=== PATIENT | female | born 1990 | race Caucasian/White ===

== ENCOUNTER 2020-10-23 16:30 | Emergency (ER) | payer OTHER ==
[2020-10-23 17:59] LABS: ALT 15 U/L (4-34); AST 22 U/L (14-36); African American GFR (CKD) >90 (>60 ml/min/1.73 sqM); Alkaline Phosphatase 66 U/L (38-126); Anion Gap 10 mmol/L; Blood Urea Nitrogen 7 mg/dL (7-17); Calcium 10.1 mg/dL (8.4-10.2); Carbon Dioxide 30 mmol/L (22-30); Chloride 100 mmol/L (98-107); Glucose 104 mg/dL (74-99); Non-African American GFR(CKD) >90 (>60 ml/min/1.73 sqM); Potassium 3.4 mmol/L (3.5-5.1); Sodium 140 mmol/L (137-145); Total Bilirubin 0.4 mg/dL (0.2-1.3); Total Protein 7.7 g/dL (6.3-8.2)
[2020-10-23 18:05] LABS: Basophils % (A) 0 %; Eosinophils # (A) 0.1 k/uL (0-0.7); Eosinophils % (A) 1 %; HGB 15.1 gm/dL (11.4-16.0); Lymphocytes # (A) 1.6 k/uL (1.0-4.8); Lymphocytes % (A) 20 %; MCH 29.2 pg (25.0-35.0); MCHC 32.8 g/dL (31.0-37.0); MCV 88.9 fL (80.0-100.0); Mean Platelet Volume 8.9; Monocytes # (A) 0.3 k/uL (0-1.0); Monocytes % (A) 4 %; Neutrophils # (A) 5.7 k/uL (1.3-7.7); Neutrophils % (A) 74 %; Platelet Count 234 k/uL (150-450); RBC 5.18 m/uL (3.80-5.40); RDW 13.3 % (11.5-15.5); WBC 7.7 k/uL (3.8-10.6)
[2020-10-23 18:21] LABS: Cocaine Screen,Urine Not Detected (NotDetected); Phencyclidine Screen,Urine Not Detected (NotDetected); Urn Cannabinoid Scrn Detected (NotDetected)
[2020-10-23 18:22] LABS: Amphetamine Screen,Urine Not Detected (NotDetected); Barbiturate Screen,Urine Not Detected (NotDetected); Benzodiazepines Screen,Urine Not Detected (NotDetected); Methadone Screen, Urine Not Detected (NotDetected); Opiate Screen,Urine Not Detected (NotDetected); Oxycodone Screen, Urine Not Detected (NotDetected); Tricyclic Antidepressant,Urine Not Detected (NotDetected)
[2020-10-23 18:25] LABS: Appearance,Urine Clear (Clear); Bilirubin,Urine Negative (Negative); Blood,Urine Negative (Negative); Color,Urine Yellow; Glucose,Urine (UA) Negative (Negative); Ketones,Urine Negative (Negative); Leukocyte Esterase,Urine Negative (Negative); Nitrite,Urine Negative (Negative); Protein,Urine Trace (Negative); Specific Gravity,Urine 1.026 (1.001-1.035)
--- NOTE | 2020-10-23 18:48 | ED ---
Female Urogenital HPI - General Chief complaint: Urogenital Stated complaint: STD check Time Seen by Provider: 10/23/20 16:48 Source: patient Mode of arrival: ambulatory Limitations: no limitations - History of Present Illness Initial comments: Patient is a 30-year-old female presenting to the emergency department requesting an STD check. Patient states she recently had a new partner and is concerned that he may have gave her something. She is complaining of some mild vaginal irritation, an increase in discharge and "a different odor than normal." She is also complaining of generalized fatigue and states that she just moved to the area and is really hoping for some blood work as well. She states she has possible irritable bowel syndrome and has lost a lot of weight recently. She denies any abdominal pain, nausea or vomiting or diarrhea today. She does not believe she is as she has not had sexual intercourse since June, she is on her menstrual cycle today. She denies any fevers or chills, no chest pain or shortness of breath. She has no further complaints. - Related Data Allergies Allergy/AdvReac Type Severity Reaction Status Date / Time No Known Allergies Allergy Verified 10/23/20 16:46 Review of Systems ROS Statement: Those systems with pertinent positive or pertinent negative responses have been documented in the HPI. ROS Other: All systems not noted in ROS Statement are negative. Past Medical History Additional Past Medical History / Comment(s): Herpes, HPV. History of Any Multi-Drug Resistant Organisms: MRSA Date of last positivie culture/infection: 2006 MDRO Source:: right axilla Past Surgical History: Appendectomy, Section Past Psychological History: Anxiety, Depression, PTSD Smoking Status: Former smoker Past Alcohol Use History: Occasional Past Drug Use History: Cocaine, Marijuana General Exam - General Exam Comments Initial Comments: GENERAL: Patient is well-developed and well-nourished. Patient is nontoxic and in no ac patrick distress. HEAD: Atraumatic, normocephalic. EYES: Pupils equal round and reactive to light, extraocular movements intact, sclera anicteric, conjunctiva are normal. Eyelids were unremarkable. ENT: TMs normal, nares patent, oropharynx clear without exudates. Moist mucous me mbranes. NECK: Normal range of motion, supple without lymphadenopathy or JVD. LUNGS: Unlabored respirations. Breath sounds clear to auscultation bilaterally and equal. No wheezes rales or rhonchi. HEART: Regular rate and rhythm without murmurs, rubs or gallops. ABDOMEN: Soft, nontender, normoactive bowel sounds. No guarding, no rebound. No masses appreciated. MUSCULOSKELETAL: Normal extremities with adequate strength and normal range of motion, no pitting or edema. No clubbing or cyanosis. NEUROLOGICAL: Patient is alert and oriented x 3. Motor and sensory are also intact. Cranial nerves II through XII grossly intact. Symmetrical smile. Normal speech, normal gait. PSYCH: Normal mood, normal affect. SKIN: Warm, Dry, normal turgor, no rashes or lesions noted. Limitations: no limitations External exam: Present: normal external exam Speculum exam: Present: vaginal bleeding (Mild vaginal bleeding however patient is on her menstrual cycle.). Absent: vaginal discharge, cervical discharge, for eign body By manual exam: Present: normal by manual exam Medical Decision Making - Medical Decision Making Patient is a 30-year-old female here requesting STD check as well as basic lab work. Her vitals are stable. Her exam is unremarkable. Patient's labs show no abnormalities, he urine is normal, hCG is not detected. She did request a urine drug screen which is only positive for marijuana. Trichomonas is negative today. Genital culture, gonorrhea and committed ER all pending at this time. I discussed these findings with the patient. She is stable for discharge. I recommended following up with her family doctor as well as ASSIGNER. She is in agreement with this plan of care. - Lab Data Result diagrams: 10/23/20 17:38 10/23/20 17:38 Lab Results 10/23/20 10/23/20 10/23/20 Range/Units 17:38 17:38 17:38 WBC 7.7 (3.8-10.6) k/uL RBC 5.18 (3.80-5.40) m/uL Hgb 15.1 (11.4-16.0) gm/dL Hct 46.0 (34.0-46.0) % MCV 88.9 (80.0-100.0) fL MCH 29.2 (25.0-35.0) pg MCHC 32.8 (31.0-37.0) g/dL RDW 13.3 (11.5-15.5) % Plt Count 234 (150-450) k/uL MPV 8.9 Neutrophils % 74 % Lymphocytes % 20 % Monocytes % 4 % Eosinophils % 1 % Basophils % 0 % Neutrophils # 5.7 (1.3-7.7) k/uL Lymphocytes # 1.6 (1.0-4.8) k/uL Monocytes # 0.3 (0-1.0) k/uL Eosinophils # 0.1 (0-0.7) k/uL Basophils # 0.0 (0-0.2) k/uL Sodium (137-145) mmol/L Potassium (3.5-5.1) mmol/L Chloride (98-107) mmol/L Carbon Dioxide (22-30) mmol/L Anion Gap mmol/L BUN (7-17) mg/dL Creatinine (0.52-1.04) mg/dL Est GFR (CKD-EPI)AfAm (>60 ml/min/1.73 sqM) Est GFR (CKD-EPI)NonAf (>60 ml/min/1.73 sqM) Glucose (74-99) mg/dL Calcium (8.4-10.2) mg/dL Total Bilirubin (0.2-1.3) mg/dL AST (14-36) U/L ALT (4-34) U/L Alkaline Phosphatase (38-126) U/L Total Protein (6.3-8.2) g/dL Albumin (3.5-5.0) g/dL Urine Color Yellow Urine Appearance Clear (Clear) Urine pH 8.0 (5.0-8.0) Ur Specific [employer] 1.026 (1.001-1.035) Urine Protein Trace H (Negative) Urine Glucose (UA) Negative (Negative) Urine Ketones Negative (Negative) Urine Blood Negative (Negative) Urine Nitrite Negative (Negative) Urine Bilirubin Negative (Negative) Urine Urobilinogen 2.0 (<2.0) mg/dL Ur Leukocyte Esterase Negative (Negative) Urine HCG, Qual Not Detected (Not Detectd) Urine Opiates Screen Not Detected (NotDetected) Ur Oxycodone Screen Not Detected (NotDetected) Urine Methadone Screen Not Detected (NotDetected) Ur Propoxyphene Screen Not Detected (NotDetected) Ur Barbiturates Screen Not Detected (NotDetected) U Tricyclic Antidepress Not Detected (NotDetected) Ur Phencyclidine Scrn Not Detected (NotDetected) Ur Amphetamines Screen Not Detected (NotDetected) U Methamphetamines Scrn Not Detected (NotDetected) U Benzodiazepines Scrn Not Detected (NotDetected) Urine Cocaine Screen Not Detected (NotDetected) U Marijuana (THC) Screen Detected H (NotDetected) Trichomonas Ag (Rapid) (Negative) 10/23/20 10/23/20 Range/Units 17:38 17:38 WBC (3.8-10.6) k/uL RBC (3.80-5.40) m/uL Hgb (11.4-16.0) gm/dL Hct (34.0-46.0) % MCV (80.0-100.0) fL MCH (25.0-35.0) pg MCHC (31.0-37.0) g/dL RDW (11.5-15.5) % Plt Count (150-450) k/uL MPV Neutrophils % % Lymphocytes % % Monocytes % % Eosinophils % % Basophils % % Neutrophils # (1.3-7.7) k/uL Lymphocytes # (1.0-4.8) k/uL Monocytes # (0-1.0) k/uL Eosinophils # (0-0.7) k/uL Basophils # (0-0.2) k/uL Sodium 140 (137-145) mmol/L Potassium 3.4 L (3.5-5.1) mmol/L Chloride 100 (98-107) mmol/L Carbon Dioxide 30 (22-30) mmol/L Anion Gap 10 mmol/L BUN 7 (7-17) mg/dL Creatinine 0.62 (0.52-1.04) mg/dL Est GFR (CKD-EPI)AfAm >90 (>60 ml/min/1.73 sqM) Est GFR (CKD-EPI)NonAf >90 (>60 ml/min/1.73 sqM) Glucose 104 H (74-99) mg/dL Calcium 10.1 (8.4-10.2) mg/dL Total Bilirubin 0.4 (0.2-1.3) mg/dL AST 22 (14-36) U/L ALT 15 (4-34) U/L Alkaline Phosphatase 66 (38-126) U/L Total Protein 7.7 (6.3-8.2) g/dL Albumin 5.0 (3.5-5.0) g/dL Urine Color Urine Appearance (Clear) Urine pH (5.0-8.0) Ur Specific [employer] (1.001-1.035) Urine Protein (Negative) Urine Glucose (UA) (Negative) Urine Ketones (Negative) Urine Blood (Negative) Urine Nitrite (Negative) Urine Bilirubin (Negative) Urine Urobilinogen (<2.0) mg/dL Ur Leukocyte Esterase (Negative) Urine HCG, Qual (Not Detectd) Urine Opiates Screen (NotDetected) Ur Oxycodone Screen (NotDetected) Urine Methadone Screen (NotDetected) Ur Propoxyphene Screen (NotDetected) Ur Barbiturates Screen (NotDetected) U Tricyclic Antidepress (NotDetected) Ur Phencyclidine Scrn (NotDetected) Ur Amphetamines Screen (NotDetected) U Methamphetamines Scrn (NotDetected) U Benzodiazepines Scrn (NotDetected) Urine Cocaine Screen (NotDetected) U Marijuana (THC) Screen (NotDetected) Trichomonas Ag (Rapid) Negative (Negative) Disposition Clinical Impression: Vaginal irritation Disposition: HOME SELF-CARE Condition: Stable Instructions (If sedation given, give patient instructions): Normal Exam (ED) Additional Instructions: Please return to the Emergency Department if symptoms worsen or any other concerns. Genital culture, gonorrhea, chlamydia are pending at this time. Rest of labs today are normal. Follow-up with family doctor as well as ASSIGNER as discussed. Is patient prescribed a controlled substance at d/c from ED?: No Referrals: None,Stated [Primary Care Provider] - 1-2 days Time of Disposition: 18:48
[2020-10-24 15:44] LABS: C. trachomatis,PCR Negative (Neg,Equiv); Chlamydia trachomatis Source Cervix; N. gonorrhoeae,PCR Negative (Neg,Equiv); Neisseria Source Cervix
== END 2020-10-23 19:01 | disposition home or self-care (01) ==
LOC: EC 16:30
DX: N89.8 Other specified noninflammatory disorders of vagina (principal); Z87.891 Personal history of nicotine dependence
CPT/HCPCS: 36415; 80053; 80306; 81003; 81025; 85025; 87070; 87491; 87591; 87808; 99283

== ENCOUNTER 2020-10-24 19:44 | Emergency (ER) | payer OTHER ==
[2020-10-24 20:44] LABS: Appearance,Urine Clear (Clear); Bilirubin,Urine Negative (Negative); Blood,Urine Negative (Negative); Color,Urine Yellow; Glucose,Urine (UA) Negative (Negative); Ketones,Urine 1+ (Negative); Leukocyte Esterase,Urine Negative (Negative); Nitrite,Urine Negative (Negative); PH, Urine 6.5 (5.0-8.0); Protein,Urine Negative (Negative); Specific Gravity,Urine 1.013 (1.001-1.035); Urobilinogen,Urine <2.0 mg/dL (<2.0)
[2020-10-24 20:56] LABS: Amphetamine Screen,Urine Not Detected (NotDetected); Barbiturate Screen,Urine Not Detected (NotDetected); Benzodiazepines Screen,Urine Not Detected (NotDetected); Cocaine Screen,Urine Not Detected (NotDetected); Methadone Screen, Urine Not Detected (NotDetected); Opiate Screen,Urine Not Detected (NotDetected); Oxycodone Screen, Urine Not Detected (NotDetected); Phencyclidine Screen,Urine Not Detected (NotDetected); Tricyclic Antidepressant,Urine Not Detected (NotDetected); Urn Cannabinoid Scrn Detected (NotDetected)
--- NOTE | 2020-10-24 21:11 | ED ---
General Adult HPI - General Chief complaint: Anxiety Stated complaint: Anxiety Time Seen by Provider: 10/24/20 20:17 Source: patient Mode of arrival: ambulatory Limitations: no limitations - History of Present Illness Initial comments: Patient is a 30-year-old female presenting to the emergency department requesting a psychiatric evaluation. She denies any suicidal or homicidal thoughts. She states she's been feeling very paranoid increased anxiety over the past few months. She states she really has a hard time explaining and is not sure why she is having the symptoms. She does admit to history of some mild anxiety. She denies any pain anywhere, no chest pain or shortness of breath, no fevers. She has no further complaints. - Related Data Home Medications Medication Instructions Recorded Confirmed No Known Home Medications 10/24/20 10/24/20 Allergies Allergy/AdvReac Type Severity Reaction Status Date / Time No Known Allergies Allergy Verified 10/24/20 20:42 Review of Systems ROS Statement: Those systems with pertinent positive or pertinent negative responses have been documented in the HPI. ROS Other: All systems not noted in ROS Statement are negative. Past Medical History Additional Past Medical History / Comment(s): Herpes, HPV. History of Any Multi-Drug Resistant Organisms: MRSA Date of last positivie culture/infection: 2006 MDRO Source:: right axilla Past Surgical History: Appendectomy, Section Past Psychological History: Anxiety, Depression, PTSD Smoking Status: Former smoker Past Alcohol Use History: Occasional Past Drug Use History: Cocaine, Marijuana General Exam - General Exam Comments Initial Comments: GENERAL: Patient is well-developed and well-nourished. Patient is nontoxic and in no acute distress. HEAD: Atraumatic, normocephalic. EYES: Pupils equal round and reactive to light, extraocular movements intact, sclera anicteric, conjunctiva are normal. Eyelids were unremarkable. ENT: TMs normal, nares patent, oropharynx clear without exudates. Moist mucous membranes. NECK: Normal range of motion, supple without lymphadenopathy or JVD. LUNGS: Unlabored respirations. Breath sounds clear to auscultation bilaterally and equal. No wheezes rales or rhonchi. HEART: Regular rate and rhythm without murmurs, rubs or gallops. ABDOMEN: Soft, nontender, normoactive bowel sounds. No guarding, no rebound. No masses appreciated. : Deferred MUSCULOSKELETAL: Normal extremities with adequate strength and normal range of motion, no pitting or edema. No clubbing or cyanosis. NEUROLOGICAL: Patient is alert and oriented x 3. Motor and sensory are also intact. Cranial nerves II through XII grossly intact. Symmetrical smile. Normal speech, normal gait. PSYCH: Normal mood, normal affect. SKIN: Warm, Dry, normal turgor, no rashes or lesions noted. Limitations: no limitations Course Vital Signs 10/24/20 19:58 Temperature 98.1 F Pulse Rate 105 H Respiratory 20 Rate Blood Pressure 129/81 O2 Sat by Pulse 99 Oximetry Medical Decision Making - Medical Decision Making Patient is a 30-year-old female here requesting a psychiatric evaluation for increasing paranoid thoughts and increasing anxiety. She denies any suicidal or homicidal thoughts. Her vital signs are stable. Patient was evaluated by EPS. Patient was given mobile crisis phone number, does have an appointment already set up with a counselor in one week. She is in agreement with this plan of care. She is stable for discharge. Return parameters were discussed with her and she verbalized understanding. - Lab Data Lab Results 10/24/20 Range/Units 20:16 Urine Color Yellow Urine Appearance Clear (Clear) Urine pH 6.5 (5.0-8.0) Ur Specific [place] 1.013 (1.001-1.035) Urine Protein Negative (Negative) Urine Glucose (UA) Negative (Negative) Urine Ketones 1+ H (Negative) Urine Blood Negative (Negative) Urine Nitrite Negative (Negative) Urine Bilirubin Negative (Negative) Urine Urobilinogen <2.0 (<2.0) mg/dL Ur Leukocyte Esterase Negative (Negative) Urine Opiates Screen Not Detected (NotDetected) Ur Oxycodone Screen Not Detected (NotDetected) Urine Methadone Screen Not Detected (NotDetected) Ur Propoxyphene Screen Not Detected (NotDetected) Ur Barbiturates Screen Not Detected (NotDetected) U Tricyclic Antidepress Not Detected (NotDetected) Ur Phencyclidine Scrn Not Detected (NotDetected) Ur Amphetamines Screen Not Detected (NotDetected) U Methamphetamines Scrn Not Detected (NotDetected) U Benzodiazepines Scrn Not Detected (NotDetected) Urine Cocaine Screen Not Detected (NotDetected) U Marijuana (THC) Screen Detected H (NotDetected) Disposition Clinical Impression: Acute anxiety Disposition: HOME SELF-CARE Condition: Stable Instructions (If sedation given, give patient instructions): Generalized Anxiety Disorder (ED) Additional Instructions: Please return to the Emergency Department if symptoms worsen or any other concerns. Contact your counselor as discussed. Use mobile crisis line as needed. Is patient prescribed a controlled substance at d/c from ED?: No Referrals: David Lombardo MD [Primary Care Provider] - 1-2 days Time of Disposition: 23:06
[2020-10-24 23:23] VITALS: BP 113/74; PULSE 80; RESP 16; TEMP 97.3
== END 2020-10-24 23:23 | disposition home or self-care (01) ==
LOC: EC 19:44
DX: F41.9 Anxiety disorder, unspecified (principal); Z87.891 Personal history of nicotine dependence
CPT/HCPCS: 80306; 81003; 82075; 99283

== ENCOUNTER 2020-10-27 15:18 | Inpatient (IN) | payer MEDICAID, OTHER ==
--- NOTE | 2020-10-27 17:42 | ED ---
Psych HPI - General Source: patient Mode of arrival: ambulatory <Gloria Warren - Last Filed: 10/27/20 17:40> <Vinayak Fontana - Last Filed: 10/27/20 22:50> - General Chief Complaint: Psychiatric Symptoms Stated Complaint: Mental Health Time Seen by Provider: 10/27/20 16:06 - History of Present Illness Initial Comments: Patient is a 30-year-old female presenting to the emergency department for psychiatric evaluation. Patient was seen here for same complaint 3 days ago, was discharged home. Patient states that she was very anxious and fighting with her roommate today and she asked her roommate to call the police. Police brought her in for evaluation. Patient states that she is not understanding why "everybody is out to get her." Patient does admit to suicidal thoughts today, no specific plans, no homicidal thoughts. She denies any drug use,she denies being . She has no further complaints at this time. (Gloria Warren) - Related Data Home Medications Medication Instructions Recorded Confirmed No Known Home Medications 10/24/20 10/27/20 Allergies Allergy/AdvReac Type Severity Reaction Status Date / Time No Known Allergies Allergy Verified 10/27/20 18:57 Review of Systems ROS Other: All systems not noted in ROS Statement are negative. <Gloria Warren - Last Filed: 10/27/20 17:40> ROS Other: All systems not noted in ROS Statement are negative. <Vinayak Fontana - Last Filed: 10/27/20 22:50> ROS Statement: Those systems with pertinent positive or pertinent negative responses have been documented in the HPI. Past Medical History Additional Past Medical History / Comment(s): Herpes, HPV. History of Any Multi-Drug Resistant Organisms: MRSA Date of last positivie culture/infection: 2006 MDRO Source:: right axilla Past Surgical History: Appendectomy, Section Past Psychological History: Anxiety, Depression, PTSD Smoking Status: Former smoker Past Alcohol Use History: Occasional Past Drug Use History: Cocaine, Marijuana <Gloria Warren - Last Filed: 10/27/20 17:40> General Exam Limitations: no limitations <Gloria Warren - Last Filed: 10/27/20 17:40> - General Exam Comments Initial Comments: GENERAL: Patient is well-developed and well-nourished. Patient is nontoxic and in no acute distress. HEAD: Atraumatic, normocephalic. EYES: Pupils equal round and reactive to light, extraocular movements intact, sclera anicteric, conjunctiva are normal. Eyelids were unremarkable. ENT: TMs normal, nares patent, oropharynx clear without exudates. Moist mucous membranes. NECK: Normal range of motion, supple without lymphadenopathy or JVD. LUNGS: Unlabored respirations. Breath sounds clear to auscultation bilaterally and e qual. No wheezes rales or rhonchi. HEART: Regular rate and rhythm without murmurs, rubs or gallops. ABDOMEN: Soft, nontender, normoactive bowel sounds. No guarding, no rebound. No masses appreciated. : Deferred MUSCULOSKELETAL: Normal extremities with adequate strength and normal range of motion, no pitting or edema. No clubbing or cyanosis. NEUROLOGICAL: Patient is alert and oriented x 3. Motor and sensory are also intact. Cranial nerves II through XII grossly intact. Symmetrical smile. Normal speech, normal gait. PSYCH: Normal mood, normal affect. SKIN: Warm, Dry, normal turgor, no rashes or lesions noted. (lGoria Warren) Course Vital Signs 10/27/20 10/27/20 10/27/20 15:54 16:17 17:00 Temperature Pulse Rate 92 78 Respiratory 18 18 14 Rate Blood Pressure 128/84 O2 Sat by Pulse 96 97 97 Oximetry 10/27/20 10/27/20 10/27/20 18:00 19:00 22:33 Temperature 97.7 F Pulse Rate 72 Respiratory 14 12 18 Rate Blood Pressure 119/74 O2 Sat by Pulse 99 97 97 Oximetry Medical Decision Making <Gloria Warren - Last Filed: 10/27/20 17:40> <Vinayak Fontana - Last Filed: 10/27/20 22:50> - Medical Decision Making Patient is a 22-year-old female here for psychiatric evaluation. She seems extremely anxious and confused during exam. Her vitals are stable. She does have thoughts of harming herself but no specific plan. No homicidal thoughts. (Gloria Warren) Case is discussed with the psychiatric nurse and they would like to admit the patient to the hospital for further treatment. They felt as though she is suicidal and patient is agreeable to admission. (Vinayak Fontana) - Lab Data Lab Results 10/27/20 10/27/20 Range/Units 17:05 17:05 Urine HCG, Qual Not Detected (Not Detectd) Urine Opiates Screen Not Detected (NotDetected) Ur Oxycodone Screen Not Detected (NotDetected) Urine Methadone Screen Not Detected (NotDetected) Ur Propoxyphene Screen Not Detected (NotDetected) Ur Barbiturates Screen Not Detected (NotDetected) U Tricyclic Antidepress Not Detected (NotDetected) Ur Phencyclidine Scrn Not Detected (NotDetected) Ur Amphetamines Screen Not Detected (NotDetected) U Methamphetamines Scrn Not Detected (NotDetected) U Benzodiazepines Scrn Not Detected (NotDetected) Urine Cocaine Screen Not Detected (NotDetected) U Marijuana (THC) Screen Detected H (NotDetected) Disposition <Gloria Warren - Last Filed: 10/27/20 17:40> Is patient prescribed a controlled substance at d/c from ED?: No Time of Disposition: 22:50 Decision Date: 10/27/20 Decision Time: 22:50 <Vinayak Fontana - Last Filed: 10/27/20 22:50> Clinical Impression: Suicidal ideation, Depression Disposition: ADMITTED IP TO THIS HOSP Condition: Fair Referrals: David Lombardo MD [Primary Care Provider] - 1-2 days
[2020-10-27 17:45] LABS: Amphetamine Screen,Urine Not Detected (NotDetected); Barbiturate Screen,Urine Not Detected (NotDetected); Benzodiazepines Screen,Urine Not Detected (NotDetected); Cocaine Screen,Urine Not Detected (NotDetected); Methadone Screen, Urine Not Detected (NotDetected); Opiate Screen,Urine Not Detected (NotDetected); Oxycodone Screen, Urine Not Detected (NotDetected); Phencyclidine Screen,Urine Not Detected (NotDetected); Tricyclic Antidepressant,Urine Not Detected (NotDetected); Urn Cannabinoid Scrn Detected (NotDetected)
[2020-10-28] MEDS ORDERED: LORazepam 1 MG TAB PO PRN (04:11)
[2020-10-28] MEDS ORDERED: MAG HYDROX/AL HYDROX/SIMETH 30 ML CUP PO PRN (04:11)
[2020-10-28] MEDS ORDERED: MAGNESIUM HYDROXIDE 2,400 MG/10 ML CUP PO PRN (04:11)
[2020-10-28] MEDS ORDERED: ACETAMINOPHEN TAB 325 MG TAB PO PRN (04:11)
[2020-10-28] MEDS: traZODone HCL 50 MG TAB PO PRN (04:25)
[2020-10-28] MEDS ORDERED: NICOTINE 14MG/24HR PATCH TRANSDERM SCH (09:00)
[2020-10-28] MEDS: OLANZapine 5 MG TAB PO SCH ×2 (11:00→21:25)
[2020-10-28] MEDS: FAMOTIDINE 20 MG TAB PO SCH ×2 (11:00→21:25)
[2020-10-28] MEDS ORDERED: ONDANSETRON ODT 4 MG TAB PO PRN (15:32)
--- NOTE | 2020-10-28 15:35 | P.CONS ---
History of Present Illness - Reason for Consult medical clearance - History of Present Illness 30-year-old female came in for acute psychosis. Patient is admitted to psychiatric floor. Patient denied any fever chills vomiting dysuria diarrhea. patient denied any complaints at this time. Patient denied any IV drug use but does use drugs and does vape, denied any alcohol abuse.Faraz was complaining of some retrosternal discomfort and nausea Review of Systems REVIEW OF SYSTEMS: CONSTITUTIONAL: No fever, no malaise, no fatigue. HEENT: No recent visual problems or hearing problems. Denied any sore throat. CARDIOVASCULAR: No chest pain, orthopnea, PND, no palpitations, no syncope. PULMONARY: No shortness of breath, no cough, no hemoptysis. GASTROINTESTINAL: No diarrhea, no nausea, no vomiting, no abdominal pain. NEUROLOGICAL: No headaches, no weakness, no numbness. HEMATOLOGICAL: Denies any bleeding or petechiae. GENITOURINARY: Denies any burning micturition, frequency, or urgency. MUSCULOSKELETAL/RHEUMATOLOGICAL: Denies any joint pain, swelling, or any muscle pain. ENDOCRINE: Denies any polyuria or polydipsia. The rest of the 14-point review of systems is negative. Past Medical History Additional Past Medical History / Comment(s): Herpes, HPV. History of Any Multi-Drug Resistant Organisms: MRSA Year Discovered:: 2006 MDRO Source:: right axilla Past Surgical History: Appendectomy, Section Past Psychological History: Anxiety, Depression, PTSD Smoking Status: Former smoker Past Alcohol Use History: Occasional Past Drug Use History: Cocaine, Marijuana Medications and Allergies Home Medications Medication Instructions Recorded Confirmed Type No Known Home Medications 10/24/20 10/27/20 History Allergies Allergy/AdvReac Type Severity Reaction Status Date / Time No Known Allergies Allergy Verified 10/27/20 18:57 Physical Exam Vitals: Vital Signs Temp Pulse Pulse Resp BP BP Pulse Ox 10/28/20 00:45 98.2 F 85 16 117/71 98 10/28/20 00:00 78 18 124/75 98 10/27/20 22:33 97.7 F 72 18 119/74 97 10/27/20 19:00 12 97 10/27/20 18:00 14 99 10/27/20 17:00 14 97 10/27/20 16:17 78 18 97 10/27/20 15:54 92 18 128/84 96 Intake and Output 10/28/20 10/28/20 10/28/20 06:59 14:59 22:59 Other: Weight 51.2 kg PHYSICAL EXAMINATION: GENERAL: The patient is alert and oriented x3, not in any acute distress. Well developed, well nourished. HEENT: Pupils are round and equally reacting to light. EOMI. No scleral icterus. No conjunctival pallor. Normocephalic, atraumatic. No pharyngeal erythema. No thyromegaly. CARDIOVASCULAR: S1 and S2 present. No murmurs, rubs, or gallops. PULMONARY: Chest is clear to auscultation, no wheezing or crackles. ABDOMEN: Soft, nontender, nondistended, normoactive bowel sounds. No palpable organomegaly. MUSCULOSKELETAL: No joint swelling or deformity. EXTREMITIES: No cyanosis, clubbing, or pedal edema. NEUROLOGICAL: Gross neurological examination did not reveal any focal deficits. SKIN: No rashes. Results Labs: Abnormal Lab Results - Last 24 Hours (Table) 10/27/20 Range/Units 17:05 U Marijuana (THC) Screen Detected H (NotDetected) Assessment and Plan Plan: -possible esophagitis: Patient is already on Pepcid which will be continued patient will be given Zofran as needed. Patient is also on MiraLAX which will be continued as well. -Acute psychosis management as per primary service -Nicotine use and other substance abuse: Counseling was provided regarding this
--- NOTE | 2020-10-28 17:02 | HP ---
DATE OF SERVICE: 10/28/2020 HISTORY AND PHYSICAL IDENTIFYING DATA: The patient is a 22-year-old single female. She has been living with a friend. She had a friend call police due to some of her anxiety with the police bringing her to the ED. CHIEF COMPLAINT: The patient was delusional, believing she was poisoned. She was having suicide thoughts without a plan. HISTORY OF PRESENTING ILLNESS: The patient has had long-term psychiatric issues. She says that her problems go back to around age 13 or 14 when she was first diagnosed with ADHD and depression. She said she was on some medications including stimulants. She felt they actually made things worse for her. She has had previous psychiatric hospitalizations with her last being at [facility] in 2018. At that time, she was admitted following an overdose of Adderall. She notes that she has had a number of relocations over the last several years. She had been living in [place], she then moved to [place] where she lived for 2 years. She said she was living with her . Last January she moved from [place] to [place] and moved in with a boyfriend. She left [place] October 18 and has moved to the [facility] and is living with a friend, Kaitlynn. She describes that as a stable living situation and where she anticipates to return after the hospitalization. It is noteworthy, however, that she also said that leading up to this hospitalization she stated she "accused Kaitlynn of drugging the family to get at me." She acknowledged having delusions of being poisoned. She seemed to make a suggestion that people were making statements about her and perhaps talking about her behind her back. She notes that she had been on medications going back to last January. She thinks she was on Trileptal, Topamax and Effexor, though she said she weaned off those medications in January and has not been on any psychotropic since then. At one point, she seemed to indicate that Effexor had helped her and that another time in the discussions she seemed to indicate that there were some side effects or problems with Effexor, but she was not clear on details. She notes a history of cocaine and crack cocaine up until 2016. She reports no current drug use other than marijuana, which she uses daily. She notes significant trauma going back to childhood. She says she has blocked out a lot of childhood memories. She notes that she was living with her grandparents and in 2010, he went to the backyard and shot himself. She said she was holding him as he was dying. She notes that her mother had heroin addiction and when she was age 8 from complications of that. In addition, her father when she was 18 of heart problems. She has 2 half-siblings, a brother and sister. She said her half brother in November. She had a contentious relationship with her half-sister who is 6 years her elder. The patient is currently not on any psychotropic medication. She is admitted for further evaluation. SUBSTANCE USE HISTORY: As above. PAST MEDICAL HISTORY: The patient is positive for HPV and genital herpes. She has had recent complaint of vomiting and diarrhea that have been persistent for several months. FAMILY AND SOCIAL HISTORY: The patient dropped out of school in the 9th grade. She was living with her grandparents at the time. It sounded as if she may have been somewhat defiant as part of her dropping out of school. She has a child, 8 years old, who currently is living with the father's parents including the father's stepmother and father. She has not had contact with her child since about age 5. She was vague about specifics of the court issues relating to custody. She seemed to indicate that she has legal rights to have contact with the children, though when she has made contact with the child's grandparents, in order to have some visits, he is turned down. MENTAL STATUS EXAM: Patient gave fair eye contact. Psychomotor activity was restless. She answered questions with brief responses. Her thoughts some of the time were clear and on and then other times were somewhat disconnected. At times it was hard to follow her train of thought. Her affect was somewhat intense and anxious. Her mood depressed. She was significantly distressed. There was some indications of paranoid delusions. The patient voiced no thoughts of harm at the time that I interviewed her. On cognitive exam, she did not make an effort to answer formal cognitive questions though was oriented to circumstances and surroundings. She could give me details of recent information that was documented in the medical record. ASSESSMENT: This 30-year-old female is diagnosed with psychosis, not otherwise specified. She has had past episodes apparently also for psychotic symptoms. Though we do not have details, it does seem as though she has a very limited support system. Strengths include [place] intelligence. Weakness includes her unstable living circumstances and relationships. DIAGNOSES: 1. Psychosis not otherwise specified. 2. Marijuana use. 3. History of cocaine dependence, in remission. 4. Gastrointestinal distress. RECOMMENDATIONS: Patient will be admitted for comprehensive medical,psychiatric and psychosocial evaluation. We will engage the patient in individual and group therapeutic activity. I will start the patient on Zyprexa 5 mg twice a day. The aim of Zyprexa is to address psychotic symptoms of persistent delusions with paranoia. The patient suggests that she does have a stable living situation with her friend, Kaitlynn. We will need to sort that out further. Also, it will be helpful to have contact with Kaitlynn to get further information about factors leading up to her hospitalization. I reviewed medication issues with the patient including indications, potential side effects and longer-term concerns relating to metabolic and movement disorder issues. I will start the patient on Pepcid 20 mg twice a day for her GI symptoms. We will focus on stabilization and discharge planning. INDIRA / CLARISSAN: [id number] / JORY
[2020-10-29 07:40] LABS: Basophils % (A) 0 %; Eosinophils % (A) 0 %; HCT 47.3 % (34.0-46.0); HGB 16.2 gm/dL (11.4-16.0); Lymphocytes # (A) 3.4 k/uL (1.0-4.8); Lymphocytes % (A) 49 %; MCH 30.4 pg (25.0-35.0); MCHC 34.2 g/dL (31.0-37.0); MCV 88.9 fL (80.0-100.0); Mean Platelet Volume 8.5; Monocytes # (A) 0.4 k/uL (0-1.0); Monocytes % (A) 5 %; Neutrophils # (A) 3.1 k/uL (1.3-7.7); Neutrophils % (A) 44 %; Platelet Count 221 k/uL (150-450); RBC 5.32 m/uL (3.80-5.40); RDW 12.7 % (11.5-15.5)
[2020-10-29 07:57] LABS: ALT 35 U/L (4-34); AST 40 U/L (14-36); African American GFR (CKD) >90 (>60 ml/min/1.73 sqM); Albumin 4.6 g/dL (3.5-5.0); Alkaline Phosphatase 53 U/L (38-126); Anion Gap 8 mmol/L; Blood Urea Nitrogen 10 mg/dL (7-17); Calcium 9.8 mg/dL (8.4-10.2); Carbon Dioxide 32 mmol/L (22-30); Chloride 102 mmol/L (98-107); Glucose 87 mg/dL (74-99); Non-African American GFR(CKD) >90 (>60 ml/min/1.73 sqM); Potassium 4.3 mmol/L (3.5-5.1); Sodium 142 mmol/L (137-145); Total Bilirubin 0.5 mg/dL (0.2-1.3); Total Protein 6.8 g/dL (6.3-8.2)
[2020-10-29] MEDS: FAMOTIDINE 20 MG TAB PO SCH ×2 (09:06→21:14)
[2020-10-29] MEDS: OLANZapine 5 MG TAB PO SCH ×2 (09:06→21:14)
--- NOTE | 2020-10-29 11:59 | PN ---
PROGRESS NOTE DATE OF SERVICE: 10/29/2020 CHIEF COMPLAINT: The patient was delusional, believing she was poisoned. She was having suicide thoughts without a plan. INTERVAL HISTORY: Patient has been doing fair. She had a quiet day yesterday. She said she slept quite a bit on off through the day. She did come out in the day areas some. She would interact with others. She was appropriate in her interactions with staff and peers. She attended two groups yesterday and was appropriate in the group. She said she missed some groups because she was sleeping. She pretty much slept through the night. Today she has been up. She comes out in the day area. She notes that issues that brought her into the hospital which mainly was the paranoia, believing she was being poisoned, those ideas have pretty much quieted down for her. She says she does not have that too much on her mind. She does note that she moved one week ago from [place] and has been living with a friend named Kaitlynn. She says part of the issue was she was believing that Kaitlynn was poisoning her family. She had indicated yesterday that her plan was to move back with Kaitlynn and she felt comfortable there, though today she says she is not sure Kaitlynn would be wanting her to come back because of the accusation she made. She notes on the other hand that she actually has set up plans to move back to [place] to live with her . She notes that the two of them had been living together in [place] for four years. They have been legally for two years. She acknowledged that she was "cheating" on her on the Internet and had connected with an old friend which led to her moving from [place] to [place] to live with him. That situation ended up turning bad, which is why she moved one week ago to [place]. She feels comfortable with her plans now of moving back to [place]. She notes that her has developed a relationship with another friend of hers, so that the now is living with a girlfriend. She says in spite of that she feels she will be comfortable in that home and that in her contacts with her , the has been supportive of her situation as well. She said that previously she had made efforts to [facility] with [facility] but had been informed that her condition was not severe enough for their followup. She is hopeful that she can get referred there when she leaves the hospital given the situation she is in now. She tolerates psychotropic medications. MENTAL STATUS: Patient sat with a little restlessness. She gave fairly good eye contact. She answered questions appropriately. Her thoughts were clear. She seemed to show some reasonable insight about her situation. Her affect was a little anxious. Her mood was dysphoric though not clearly down or depressed. She seemed a little distressed, though not to a significant degree. She is indicating that paranoid delusions are regressing. She voices no thoughts of harm. Cognition is clear. ASSESSMENT: I will continue the current diagnosis and treatment plan. I will continue psychotropic medications the same, namely Zyprexa 5 mg twice a day. We will monitor to see if the morning dose of Zyprexa causes some daytime sedation. We can look to switch it all to bedtime. I would anticipate that over the next week or so she would likely be best off taking it all once a day. We talked about discharge planning. We will look at making contact with the [facility]. The patient appears to be making progress though continues with some level of delusions relating to the paranoia that brought her to the hospital. We will focus on stabilization and discharge planning. INDIRA / LUIS: [id number] /
[2020-10-29 12:05] LABS: Chol/HDL Ratio 3.75; Cholesterol 150 mg/dL (0-200); LDL Cholesterol,Calculated 92.4 mg/dL (0.0-131.0)
[2020-10-29 14:45] LABS: Hemoglobin A1C 5.5 % (4.0-6.0)
[2020-10-29] MEDS: traZODone HCL 50 MG TAB PO PRN (21:14)
[2020-10-30] MEDS: FAMOTIDINE 20 MG TAB PO SCH (07:51)
[2020-10-30] MEDS: OLANZapine 5 MG TAB PO SCH ×2 (07:51→20:48)
--- NOTE | 2020-10-30 11:01 | PN ---
PROGRESS NOTE DATE OF SERVICE: 10/30/2020 CHIEF COMPLAINT: The patient was delusional, believing she was poisoned. She was having suicidal thoughts without a plan. INTERVAL HISTORY: Patient has been doing fair. She had a quiet day yesterday. She comes out in the day area. She interacts with others. She tends about half the groups. She has not noted any problems with medications. She slept well last night. Today she has been up. Again, she comes out in the day area. She feels that overall she is doing better. Her mood is improved. It is noted that she talked with Kaitlynn who was the person she had been living with. She was a little uncomfortable about the discussion, namely that she felt she had said some harsh things towards Kaitlynn. When I asked her about it she acknowledged that most of it was based on her paranoid thinking and not something that related to their relationship. Still she says she is uncertain. She does note that she had some contact with her ex-boyfriend who she had been living with in [place]. She said that he seemed to be supportive and comfortable with the current situation as noted previously. She continues to be focused on moving back to [place]. She has worked with a prescriber, Graciela Glass, at [facility]. She had made efforts to connect with [facility], but was not eligible due to the less severe illness that they assessed. Overall, she seems to be making progress. She tolerates her psychotropic medications. MENTAL STATUS: Patient sat without restlessness. She gave fairly good eye contact. Psychomotor activity was a little slowed. She answered questions with direct responses. Her thoughts were clear. Her affect was somewhat anxious her mood reserved though not clearly down or depressed. She did not appear to be significantly distressed. She acknowledges paranoid thinking that seems to be declining. She voices no thoughts of harm. Cognition is clear. ASSESSMENT: I will continue the current diagnosis and treatment plan. I will continue psychotropic medications the same namely Zyprexa 5 mg twice a day. She is also on trazodone at bedtime p.r.n. I will order a HIV which is one of the tests she was requesting given her history with STD. We will focus on stabilization and discharge planning. I anticipate discharging her by mid week. MMODL / IJN: [id number] /
[2020-10-30 18:43] LABS: HIV 2 AB Non-Reactive (Non-Reactive); HIV AB P24 Non-Reactive (Non-Reactive); HIV P24 AG Non-Reactive (Non-Reactive)
[2020-10-30] MEDS: traZODone HCL 50 MG TAB PO PRN (20:49)
[2020-10-31] MEDS: OLANZapine 5 MG TAB PO SCH (08:59)
[2020-10-31] MEDS ORDERED: FAMOTIDINE 20 MG TAB PO SCH (09:00)
[2020-10-31 10:20] VITALS: BP 120/57; PULSE 93; RESP 18; TEMP 98.1
[2020-10-31] MEDS ORDERED: traZODone HCL 50 MG TAB PO PRN (10:49)
--- NOTE | 2020-10-31 11:56 | PN ---
PROGRESS NOTE DATE OF SERVICE: 10/31/2020. CHIEF COMPLAINT: The patient was delusional, believing she was poisoned. She was having suicidal thoughts without a plan. INTERVAL HISTORY: Patient has been doing fair. Yesterday she had ups and downs in her mood. She will come out in the day area. She tends to keep to herself. Overall she seems to be making progress, though she continues to express thoughts about a paranoia. She acknowledges that when she was living for the past week with her friend, Kaitlynn, that what set off the problems was her accusing Kaitlynn poisoning her family. She became very fearful and that was one issue that precipitated her coming to the hospital. It is noted she attended groups yesterday and continues to show difficulties. In the 9:30 group, she was noted to be "catatonic." In the 12:30 group the following was documented, "even though the patient attended the full length of the group. The patient did not really participate a whole lot. The patient was very withdrawn when it came to participation. The patient did not really interact with other patients who attended groups." She slept fairly well. She says when she takes the trazodone makes her tired in the mornings, so she is reluctant to continue with that. It is noteworthy that we talked about discharge planning. During our session, the patient calls her in [place] to set up transportation presumably within the next few days. There were some questions about what day she will be able to get transportation, though would have transportation within the next few days. We then called [place] where she had been staying before. During the conversation, it was noted that the patient had an emotional blow up with Kaitlynn. Kaitlynn was very distressed about the situation. Kaitlynn had brought the patient's belongings to the hospital today and apparently the patient had a blow up because one of the pieces of clothing in the bag was in fact Kaitlynn's. To some extent, Mariia apparently made threatening comments and seem to be continuing to show some paranoid thinking. In the midst of that telephone conversation, the patient hung up on [employer] and essentially stormed out of the office. I reviewed medications with the patient. She felt that the Zyprexa was helping. I suggested she could consider taking all her Zyprexa at bedtime though at this point she said she wants to take it twice a day as she does feel a little better when she takes the morning dose. She said she feels calmer and her thoughts are a little clearer. She was comfortable with the idea of reducing her trazodone dose to 25 mg a day rather than 50 mg a day. Toward the end of the conversation, we were unable to continue the discussion because the patient was showing quite a bit of distress over her contacts with her connections in the community. The patient appears to tolerate her psychotropic medications. MENTAL STATUS: Patient sat with a little restlessness. She gave fair eye contact at best, mostly she looked down. She answered questions with brief responses. She did say a lot. Her affect was flat. Her mood down. She seemed moderately distressed. She continues to show some signs of paranoid thinking though that does seem to be lessening some. She voiced no thoughts of harm. Cognition was clear. ASSESSMENT: I will continue the current diagnosis and treatment plan. I will reduce trazodone to 25 mg at bedtime p.r.n. She will continue Zyprexa 5 mg twice a day. We discussed discharge planning issues. Anticipate discharging the patient in the next few days. She seemed to be reasonably comfortable with that, though it does seem like she relies on her supports in the community for settling some of her own emotional struggles. We will be coordinating with the patient's in terms of transportation in anticipation of her moving to [place]. INDIRA / LUIS: [id number] /
--- NOTE | 2020-10-31 20:00 | DS ---
DISCHARGE SUMMARY DATE OF ADMISSION: 10/27/2020 DATE OF DISCHARGE: 10/31/2020 ADMISSION AND DISCHARGE DIAGNOSES: 1. Psychosis not otherwise specified. 2. Marijuana use. 3. History of cocaine dependence, in remission. 4. Gastrointestinal distress. HISTORY OF PRESENTING ILLNESS: The patient is a 30-year-old female. She was admitted following having been brought to the hospital by police. Her roommate called the police because she was delusional and was making statements that she was being poisoned. She also was having suicide thoughts. The patient indicated that she had mental health issues going back to age of 13 or 14 when she was diagnosed with both ADHD and depression. She had been tried on stimulants, though she said it made things worse. She had some recent struggles in relationships. She was in a relationship for 4 years living in [place]. Two years ago she and her partner were and continued to be legally . Last January she ended up getting involved with a person in [place], so she moved to the [place] area. She continued to reside with that person until just recently. One week ago she moved to [place] and started living with a friend who she felt was a supportive friend. Over the last several weeks she started having increasing problems with depression. She developed paranoid delusions, believing the "friend" she was living with was poisoning her and family. She believed that people were talking about her behind her back. She had previously been on some psychotropic medications and thought it may have been Trileptal, Topamax and Effexor, though she was not so clear. She noted that she had weaned off of medications last January when she had moved to [place]. She noted a history of cocaine and crack cocaine use up until 2016. At present, she had been using marijuana. She noted significant traumatic experiences in her family growing up. She acknowledged blocking out a lot of feelings. She noted that her mother had heroin dependency and when she was 8 years old from complications of that. Her father when she was 18 from heart problems. She had a half brother who this past November. She has a contentious relationship with a half sister who is 6 years older. She was feeling increasingly depressed and despondent, leading up to her hospitalization. She was admitted for further evaluation. MENTAL STATUS EXAMINATION: Patient was restless. She answered questions with brief responses. It was noted that some of the time her thoughts were clear. At other times she seemed to be disconnected in her thoughts and would lose her train of thought. She had an intense anxious affect. Her mood was depressed. She was significantly distressed. She indicated paranoid delusions. She did not voice thoughts of harm. Cognition was clear. COURSE OF HOSPITALIZATION: Patient was admitted for comprehensive medical, psychiatric and psychosocial evaluation. We engaged the patient in individual and group therapeutic activities. On admission, the patient was started on Zyprexa 5 mg twice a day. The aim of Zyprexa was to address psychotic symptoms of paranoid delusions and to help reduce physiologic stress response relating to marijuana withdrawal. Early on in her hospitalization, the patient attended some groups and declined going to others. She was able to talk about having clear insights into the idea of her having madhavi delusions of a paranoid nature. She was able to talk about some of the struggles she had in relationships. Initially she was planning to repeat return to live in [place] with her friend, though in making contacts with her support she elected to move back to [place] with her . She notes that her had developed a relationship with another person and they were living together, though she believed that that would be a reasonable situation. She believed her was supportive of her living there. The patient established a fairly good sleep pattern at night. She had some ups and downs in regard to working out the discharge plan. She was showing fairly good improvement in general as far as how she was getting along. She did have some episodes of getting quite distressed with interactions she had with the woman she has been living with in the [facility]. She also felt distressed on the unit, mainly because she had difficulty being comfortable around some of the other patients who were presenting with some fairly acute symptoms. She worked out a transportation plan with her , though it was not to occur until . She said that she believed it would be best for her if she was discharged today and went to a long-term, where she felt that she would have a more contained and comfortable environment compared to continuing on the psychiatric unit. She was able to indicate that she did not have any thoughts of harming herself or others. She acknowledged that while she may continue with some uncertainties in her life situation, she did not feel that she was being impacted by any delusional thoughts. She made a fairly clear and concrete plan for discharge. CONDITION AT DISCHARGE: Patient was stable. Her mood was improved. She had gained insights regarding issues of her thought disorder. She seemed to be making progress in terms of reduction in paranoid delusions. She was voicing no thoughts of harm to self or others. She tolerated her psychotropic medication. RECOMMENDATIONS AND FOLLOWUP: Discharge medications: Zyprexa 5 mg twice a day, trazodone 25 mg at bedtime. She has followup at [facility] in one week. She has a referral to Dr. Lombardo in the next two days for primary care. She will be residing in a woman's long-term until . At that point it is anticipated her will pick her up and she will go to [place] to live with her , where she had been living previously. MMODL / IJN: [id number] /
[2020-11-01 15:42] LABS: HIV-1 RNA Not detected (Not detected)
== END 2020-10-31 12:05 | disposition home or self-care (01) | DRG 881 ==
LOC: EC 15:18 → 3MHU 23:50
PROVIDERS: ADMIT Psychiatry & Neurology Psychiatry; ATTEND Psychiatry & Neurology Psychiatry
DX: F32.9 Major depressive disorder, single episode, unspecified (principal); F23 Brief psychotic disorder; R45.851 Suicidal ideations; F12.90 Cannabis use, unspecified, uncomplicated; F14.21 Cocaine dependence, in remission; F43.10 Post-traumatic stress disorder, unspecified; Z87.891 Personal history of nicotine dependence; Z20.822 Contact with and (suspected) exposure to COVID-19
CPT/HCPCS: 80053; 80061; 80306; 81025; 82075; 83036; 84443; 85025; 86803; 87390; 87535; 87635; 99285

== ENCOUNTER 2021-04-21 09:08 | Inpatient (IN) | payer MEDICAID, OTHER ==
[2021-04-21] MEDS ORDERED: SODIUM CHLORIDE 0.9% 1,000 ML IV STA (09:30)
[2021-04-21 10:08] LABS: Basophils % (A) 0 %; Eosinophils # (A) 0.1 k/uL (0-0.7); Eosinophils % (A) 1 %; HCT 42.8 % (34.0-46.0); HGB 14.3 gm/dL (11.4-16.0); Lymphocytes # (A) 1.6 k/uL (1.0-4.8); Lymphocytes % (A) 22 %; MCH 29.1 pg (25.0-35.0); MCHC 33.4 g/dL (31.0-37.0); MCV 87.1 fL (80.0-100.0); Mean Platelet Volume 8.1; Monocytes # (A) 0.2 k/uL (0-1.0); Monocytes % (A) 3 %; Neutrophils # (A) 5.1 k/uL (1.3-7.7); Neutrophils % (A) 72 %; Platelet Count 278 k/uL (150-450); RBC 4.92 m/uL (3.80-5.40)
[2021-04-21 10:14] LABS: Appearance,Urine Cloudy (Clear); Bacteria,Urine Occasional /hpf; Bilirubin,Urine Negative (Negative); Blood,Urine Large (Negative); Color,Urine Yellow; Glucose,Urine (UA) Negative (Negative); Ketones,Urine Negative (Negative); Leukocyte Esterase,Urine Negative (Negative); Mucus,Urine Many /hpf; Nitrite,Urine Negative (Negative); Protein,Urine 1+ (Negative); RBC,Urine 2 /hpf (0-5); Specific Gravity,Urine 1.025 (1.001-1.035); Squamous Epithelial Cell,Urine 14 /hpf (0-4); Urobilinogen,Urine <2.0 mg/dL (<2.0); WBC,Urine 8 /hpf (0-5)
[2021-04-21 10:20] LABS: ALT 16 U/L (4-34); AST 21 U/L (14-36); Acetaminophen <10.0 ug/mL; African American GFR (CKD) >90 (>60 ml/min/1.73 sqM); Albumin 4.6 g/dL (3.5-5.0); Alkaline Phosphatase 73 U/L (38-126); Anion Gap 11 mmol/L; Blood Urea Nitrogen 10 mg/dL (7-17); Carbon Dioxide 24 mmol/L (22-30); Chloride 106 mmol/L (98-107); Glucose 118 mg/dL (74-99); Non-African American GFR(CKD) >90 (>60 ml/min/1.73 sqM); Potassium 3.3 mmol/L (3.5-5.1); Salicylate <1.0 mg/dL; Sodium 141 mmol/L (137-145); Total Bilirubin 0.6 mg/dL (0.2-1.3); Total Protein 7.3 g/dL (6.3-8.2)
[2021-04-21 10:21] LABS: Cocaine Screen,Urine Not Detected (NotDetected); Phencyclidine Screen,Urine Not Detected (NotDetected); Urn Cannabinoid Scrn Detected (NotDetected)
[2021-04-21 10:22] LABS: Amphetamine Screen,Urine Not Detected (NotDetected); Barbiturate Screen,Urine Not Detected (NotDetected); Benzodiazepines Screen,Urine Detected (NotDetected); Methadone Screen, Urine Not Detected (NotDetected); Opiate Screen,Urine Not Detected (NotDetected); Oxycodone Screen, Urine Not Detected (NotDetected); Tricyclic Antidepressant,Urine Detected (NotDetected)
--- NOTE | 2021-04-21 12:50 | ED ---
Psych HPI - General Chief Complaint: Psychiatric Symptoms Stated Complaint: Mental Health/Overdose Time Seen by Provider: 04/21/21 09:24 Source: patient Mode of arrival: ambulatory - History of Present Illness Initial Comments: This a 31-year-old female presents emergency dept with chief complaint of depression, suicidal ideation, drug overdose. Patient states she took her pre scription medications last night and attempted to harm herself. Patient states she attempted vomiting but nothing. Patient states she is upset stomach. No chest pain or shortness breath - Related Data Home Medications Medication Instructions Recorded Confirmed Acetaminophen [Tylenol] 500 mg PO Q6H PRN 04/21/21 04/21/21 hydrOXYzine pamoate [Vistaril] 25 mg PO BID 04/21/21 04/21/21 hydrOXYzine pamoate [Vistaril] 50 mg PO HS 04/21/21 04/21/21 Allergies Allergy/AdvReac Type Severity Reaction Status Date / Time No Known Allergies Allergy Verified 04/21/21 11:04 Review of Systems ROS Statement: Those systems with pertinent positive or pertinent negative responses have been documented in the HPI. ROS Other: All systems not noted in ROS Statement are negative. Past Medical History Additional Past Medical History / Comment(s): Herpes, HPV. History of Any Multi-Drug Resistant Organisms: MRSA Date of last positivie culture/infection: 2006 MDRO Source:: right axilla Past Surgical History: Appendectomy, Section Past Psychological History: Anxiety, Depression, PTSD Smoking Status: Former smoker Past Alcohol Use History: Occasional Past Drug Use History: Cocaine, Marijuana General Exam Limitations: no limitations General appearance: alert, in no apparent distress Head exam: Present: atraumatic, normocephalic, normal inspection Eye exam: Present: normal appearance, PERRL, EOMI. Absent: scleral icterus, conjunctival injection, periorbital swelling ENT exam: Present: normal exam, normal oropharynx, mucous membranes moist Neck exam: Present: normal inspection, full ROM. Absent: tenderness, meningismus, lymphadenopathy Respiratory exam: Present: normal lung sounds bilaterally. Absent: respiratory distress, wheezes, rales, rhonchi, stridor Cardiovascular Exam: Present: regular rate, normal rhythm, normal heart sounds. Absent: systolic murmur, diastolic murmur, rubs, gallop, clicks GI/Abdominal exam: Present: soft, normal bowel sounds. Absent: distended, tenderness, guarding, rebound, rigid Neurological exam: Present: alert, oriented X3, CN II-XII intact, reflexes normal. Absent: motor sensory deficit Skin exam: Present: warm, dry, intact, normal color. Absent: rash Course Vital Signs 04/21/21 09:18 Temperature 98.0 F Pulse Rate 94 Respiratory 19 Rate Blood Pressure 133/74 O2 Sat by Pulse 98 Oximetry Medical Decision Making - Medical Decision Making Patient is vital are stable, no signs of distress. Patient more likely did not take medication though poison control was contacted. Patient was evaluated by EPS will be admitted for further treatment and management. - Lab Data Result diagrams: 04/21/21 09:48 04/21/21 09:48 Lab Results 04/21/21 04/21/21 04/21/21 Range/Units 09:48 09:48 09:48 WBC 7.0 (3.8-10.6) k/uL RBC 4.92 (3.80-5.40) m/uL Hgb 14.3 (11.4-16.0) gm/dL Hct 42.8 (34.0-46.0) % MCV 87.1 (80.0-100.0) fL MCH 29.1 (25.0-35.0) pg MCHC 33.4 (31.0-37.0) g/dL RDW 13.0 (11.5-15.5) % Plt Count 278 (150-450) k/uL MPV 8.1 Neutrophils % 72 % Lymphocytes % 22 % Monocytes % 3 % Eosinophils % 1 % Basophils % 0 % Neutrophils # 5.1 (1.3-7.7) k/uL Lymphocytes # 1.6 (1.0-4.8) k/uL Monocytes # 0.2 (0-1.0) k/uL Eosinophils # 0.1 (0-0.7) k/uL Basophils # 0.0 (0-0.2) k/uL Sodium (137-145) mmol/L Potassium (3.5-5.1) mmol/L Chloride (98-107) mmol/L Carbon Dioxide (22-30) mmol/L Anion Gap mmol/L BUN (7-17) mg/dL Creatinine (0.52-1.04) mg/dL Est GFR (CKD-EPI)AfAm (>60 ml/min/1.73 sqM) Est GFR (CKD-EPI)NonAf (>60 ml/min/1.73 sqM) Glucose (74-99) mg/dL Calcium (8.4-10.2) mg/dL Total Bilirubin (0.2-1.3) mg/dL AST (14-36) U/L ALT (4-34) U/L Alkaline Phosphatase (38-126) U/L Total Protein (6.3-8.2) g/dL Albumin (3.5-5.0) g/dL Urine Color Yellow Urine Appearance Cloudy H (Clear) Urine pH 6.0 (5.0-8.0) Ur Specific Broad Top 1.025 (1.001-1.035) Urine Protein 1+ H (Negative) Urine Glucose (UA) Negative (Negative) Urine Ketones Negative (Negative) Urine Blood Large H (Negative) Urine Nitrite Negative (Negative) Urine Bilirubin Negative (Negative) Urine Urobilinogen <2.0 (<2.0) mg/dL Ur Leukocyte Esterase Negative (Negative) Urine RBC 2 (0-5) /hpf Urine WBC 8 H (0-5) /hpf Ur Squamous Epith Cells 14 H (0-4) /hpf Urine Bacteria Occasional H (None) /hpf Urine Mucus Many H (None) /hpf Urine HCG, Qual Not Detected (Not Detectd) Salicylates mg/dL Urine Opiates Screen Not Detected (NotDetected) Ur Oxycodone Screen Not Detected (NotDetected) Urine Methadone Screen Not Detected (NotDetected) Ur Propoxyphene Screen Not Detected (NotDetected) Acetaminophen ug/mL Ur Barbiturates Screen Not Detected (NotDetected) U Tricyclic Antidepress Detected H (NotDetected) Ur Phencyclidine Scrn Not Detected (NotDetected) Ur Amphetamines Screen Not Detected (NotDetected) U Methamphetamines Scrn Not Detected (NotDetected) U Benzodiazepines Scrn Detected H (NotDetected) Urine Cocaine Screen Not Detected (NotDetected) U Marijuana (THC) Screen Detected H (NotDetected) Coronavirus (PCR) (Not Detectd) 04/21/21 04/21/21 Range/Units 09:48 11:46 WBC (3.8-10.6) k/uL RBC (3.80-5.40) m/uL Hgb (11.4-16.0) gm/dL Hct (34.0-46.0) % MCV (80.0-100.0) fL MCH (25.0-35.0) pg MCHC (31.0-37.0) g/dL RDW (11.5-15.5) % Plt Count (150-450) k/uL MPV Neutrophils % % Lymphocytes % % Monocytes % % Eosinophils % % Basophils % % Neutrophils # (1.3-7.7) k/uL Lymphocytes # (1.0-4.8) k/uL Monocytes # (0-1.0) k/uL Eosinophils # (0-0.7) k/uL Basophils # (0-0.2) k/uL Sodium 141 (137-145) mmol/L Potassium 3.3 L (3.5-5.1) mmol/L Chloride 106 (98-107) mmol/L Carbon Dioxide 24 (22-30) mmol/L Anion Gap 11 mmol/L BUN 10 (7-17) mg/dL Creatinine 0.67 (0.52-1.04) mg/dL Est GFR (CKD-EPI)AfAm >90 (>60 ml/min/1.73 sqM) Est GFR (CKD-EPI)NonAf >90 (>60 ml/min/1.73 sqM) Glucose 118 H (74-99) mg/dL Calcium 10.0 (8.4-10.2) mg/dL Total Bilirubin 0.6 (0.2-1.3) mg/dL AST 21 (14-36) U/L ALT 16 (4-34) U/L Alkaline Phosphatase 73 (38-126) U/L Total Protein 7.3 (6.3-8.2) g/dL Albumin 4.6 (3.5-5.0) g/dL Urine Color Urine Appearance (Clear) Urine pH (5.0-8.0) Ur Specific Broad Top (1.001-1.035) Urine Protein (Negative) Urine Glucose (UA) (Negative) Urine Ketones (Negative) Urine Blood (Negative) Urine Nitrite (Negative) Urine Bilirubin (Negative) Urine Urobilinogen (<2.0) mg/dL Ur Leukocyte Esterase (Negative) Urine RBC (0-5) /hpf Urine WBC (0-5) /hpf Ur Squamous Epith Cells (0-4) /hpf Urine Bacteria (None) /hpf Urine Mucus (None) /hpf Urine HCG, Qual (Not Detectd) Salicylates <1.0 mg/dL Urine Opiates Screen (NotDetected) Ur Oxycodone Screen (NotDetected) Urine Methadone Screen (NotDetected) Ur Propoxyphene Screen (NotDetected) Acetaminophen <10.0 ug/mL Ur Barbiturates Screen (NotDetected) U Tricyclic Antidepress (NotDetected) Ur Phencyclidine Scrn (NotDetected) Ur Amphetamines Screen (NotDetected) U Methamphetamines Scrn (NotDetected) U Benzodiazepines Scrn (NotDetected) Urine Cocaine Screen (NotDetected) U Marijuana (THC) Screen (NotDetected) Coronavirus (PCR) Not Detected (Not Detectd) Disposition Clinical Impression: Depression, Suicidal ideation Disposition: TRANSFER TO PSYCH HOSP/UNIT Referrals: David Lombardo MD [Primary Care Provider] - 1-2 days
[2021-04-21] MEDS ORDERED: MAGNESIUM HYDROXIDE 2,400 MG/10 ML CUP PO PRN (13:59)
[2021-04-21] MEDS ORDERED: ACETAMINOPHEN TAB 325 MG TAB PO PRN (13:59)
[2021-04-21] MEDS ORDERED: MAG HYDROX/AL HYDROX/SIMETH 30 ML CUP PO PRN (13:59)
[2021-04-21] MEDS ORDERED: HALOPERIDOL LACTATE 5 MG/ML 1 ML VIAL IM PRN (14:03)
[2021-04-21] MEDS: hydrOXYzine pamoate 25 MG CAP PO SCH ×2 (20:44)
[2021-04-22] MEDS: hydrOXYzine pamoate 25 MG CAP PO SCH ×3 (09:21→20:23)
[2021-04-22] MEDS: NICOTINE 14MG/24HR PATCH TRANSDERM SCH (09:27)
[2021-04-22 11:54] LABS: Basophils % (A) 0 %; Eosinophils % (A) 0 %; HCT 39.7 % (34.0-46.0); HGB 13.4 gm/dL (11.4-16.0); Lymphocytes # (A) 1.4 k/uL (1.0-4.8); Lymphocytes % (A) 28 %; MCHC 33.6 g/dL (31.0-37.0); MCV 86.1 fL (80.0-100.0); Mean Platelet Volume 7.6; Monocytes # (A) 0.2 k/uL (0-1.0); Monocytes % (A) 3 %; Neutrophils # (A) 3.3 k/uL (1.3-7.7); Neutrophils % (A) 67 %; Platelet Count 253 k/uL (150-450); RBC 4.61 m/uL (3.80-5.40); RDW 13.4 % (11.5-15.5)
[2021-04-22 11:55] LABS: ALT 14 U/L (4-34); AST 25 U/L (14-36); African American GFR (CKD) >90 (>60 ml/min/1.73 sqM); Albumin 4.1 g/dL (3.5-5.0); Alkaline Phosphatase 59 U/L (38-126); Anion Gap 8 mmol/L; Blood Urea Nitrogen 9 mg/dL (7-17); Calcium 9.5 mg/dL (8.4-10.2); Carbon Dioxide 25 mmol/L (22-30); Chloride 105 mmol/L (98-107); Glucose 92 mg/dL (74-99); Non-African American GFR(CKD) >90 (>60 ml/min/1.73 sqM); Potassium 4.3 mmol/L (3.5-5.1); Sodium 138 mmol/L (137-145); Total Bilirubin 0.5 mg/dL (0.2-1.3); Total Protein 6.6 g/dL (6.3-8.2)
[2021-04-22 12:52] LABS: Valproic Acid (Depakene) <10.0 ug/mL
[2021-04-22] MEDS: OLANZapine 10 MG TAB PO SCH ×2 (14:10→20:23)
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
[2021-04-22 18:02] LABS: Chol/HDL Ratio 4.04 Ratio; LDL Cholesterol,Calculated 112.5 mg/dL (0.0-131.0)
--- NOTE | 2021-04-22 22:05 | P.CONS ---
History of Present Illness - Reason for Consult Consult date: 04/22/21 Medical management - Chief Complaint Depression/suicidal ideation - History of Present Illness 31-year-old female presents emergency dept with chief complaint of depression, suicidal ideation, drug overdose. Patient states she took her prescription medications last night and attempted to harm herself. Patient states she attempted vomiting but nothing. Patient states she is upset stomach. No chest pain or shortness breath Review of Systems REVIEW OF SYSTEMS: CONSTITUTIONAL: No fever, no malaise, no fatigue. HEENT: No recent visual problems or hearing problems. Denied any sore throat. CARDIOVASCULAR: No chest pain, orthopnea, PND, no palpitations, no syncope. PULMONARY: No shortness of breath, no cough, no hemoptysis. GASTROINTESTINAL: No diarrhea, no nausea, no vomiting, no abdominal pain. NEUROLOGICAL: No headaches, no weakness, no numbness. HEMATOLOGICAL: Denies any bleeding or petechiae. GENITOURINARY: Denies any burning micturition, frequency, or urgency. MUSCULOSKELETAL/RHEUMATOLOGICAL: Denies any joint pain, swelling, or any muscle pain. ENDOCRINE: Denies any polyuria or polydipsia. The rest of the 14-point review of systems is negative. Past Medical History Additional Past Medical History / Comment(s): Herpes, HPV. History of Any Multi-Drug Resistant Organisms: MRSA Year Discovered:: 2006 MDRO Source:: right axilla Past Surgical History: Appendectomy, Section Smoking Status: Current every day smoker Medications and Allergies Home Medications Medication Instructions Recorded Confirmed Type Acetaminophen [Tylenol] 500 mg PO Q6H PRN 04/21/21 04/21/21 History hydrOXYzine pamoate [Vistaril] 25 mg PO BID 04/21/21 04/21/21 History hydrOXYzine pamoate [Vistaril] 50 mg PO HS 04/21/21 04/21/21 History Allergies Allergy/AdvReac Type Severity Reaction Status Date / Time No Known Allergies Allergy Verified 04/21/21 16:59 Physical Exam Vitals: Vital Signs Temp Pulse Pulse Resp BP BP Pulse Ox 04/22/21 07:01 98.7 F 68 121/66 04/21/21 16:42 97.4 F L 76 16 116/72 04/21/21 09:18 98.0 F 94 19 133/74 98 Intake and Output 04/21/21 04/22/21 04/22/21 22:59 06:59 14:59 Other: Weight 63.049 kg - Constitutional General appearance: Present: average body habitus, cooperative, no acute distress - EENT Eyes: Present: anicteric sclerae, EOMI, PERRLA, normal appearance ENT: Present: hearing grossly normal, normal oropharynx Ears: bilateral: normal - Neck Neck: Present: normal ROM. Absent: lymphadenopathy, rigidity, thyromegaly Carotids: negative: bruit present Thyroid: bilateral: normal size, negative: enlarged, nodule - Respiratory Respiratory: bilateral: CTA, negative: rales, rhonchi, wheezing - Cardiovascular Rhythm: regular Heart sounds: normal: S1, S2 Abnormal Heart Sounds: Absent: systolic murmur, diastolic murmur - Gastrointestinal General gastrointestinal: Present: normal bowel sounds, soft. Absent: distended, organomegaly, tenderness - Genitourinary Genitourinary Comment(s): deferred - Integumentary Integumentary: Present: normal turgor. Absent: jaundiced, rash, ulcer - Neurologic Neurologic: Present: CNII-XII intact. Absent: focal deficits - Musculoskeletal Musculoskeletal: Present: gait normal, strength equal bilaterally - Psychiatric Psychiatric: Present: A&O x's 3, appropriate affect, intact judgment & insight Results CBC & Chem 7: 04/22/21 10:41 04/22/21 10:41 Labs: Abnormal Lab Results - Last 24 Hours (Table) 04/21/21 04/21/21 Range/Units 09:48 09:48 Potassium 3.3 L (3.5-5.1) mmol/L Glucose 118 H (74-99) mg/dL Urine Appearance Cloudy H (Clear) Urine Protein 1+ H (Negative) Urine Blood Large H (Negative) Urine WBC 8 H (0-5) /hpf Ur Squamous Epith Cells 14 H (0-4) /hpf Urine Bacteria Occasional H (None) /hpf Urine Mucus Many H (None) /hpf U Tricyclic Antidepress Detected H (NotDetected) U Benzodiazepines Scrn Detected H (NotDetected) U Marijuana (THC) Screen Detected H (NotDetected) Assessment and Plan Assessment: 1. Depression/suicidal ideation/drug overdose; your management 2. History of HPV/genital herpes; patient has had outpatient follow-up and evaluation by OB check which has been unremarkable 3. Recurrent UTI; not symptomatic at this time; we will monitor closely with plans to order a UA with culture if patient becomes symptomatic; patient advised outpatient urology follow-up if continues to have UTIs DVT prophylaxis; early ambulation CODE STATUS; full code
[2021-04-23] MEDS: hydrOXYzine pamoate 25 MG CAP PO SCH ×3 (08:38→20:47)
[2021-04-23] MEDS: OLANZapine 10 MG TAB PO SCH ×2 (08:38→20:46)
[2021-04-23] MEDS: NICOTINE 14MG/24HR PATCH TRANSDERM SCH (08:40)
--- NOTE | 2021-04-23 17:44 | PN ---
PROGRESS NOTE DATE OF SERVICE: 04/23/2021. CHIEF COMPLAINT: The patient was suicidal and overdosed on a large number of Prozac and Vistaril tablets. She was having delusions and hallucination. INTERVAL HISTORY: Patient has been doing fair. She had a quiet day yesterday. She comes out on the unit. She said that yesterday she attended one group. She seemed to engage reasonably well. She tends to have a quiet manner. She will be out on the unit, though she does not interact too much with others. She said she slept fairly well last night. Today, she has been up. She continues about the same. The main focus she has is where she will be living when she leaves the hospital. She anticipates not returning to the home where she was living due to the conflicts she had with the person she was living with. She said her only immediate option would be to move back to [place] with her . She acknowledges that is a complicated situation because the has another a woman who lives with her. Apparently that whole home situation is a complicated one. The patient says she has been calling her , though unfortunately the has not answered or called back and she feels that she may be abandoned by this person. She continues to feel that people are against her in various ways. She is unclear as to whether she feels her antipsychotic medicine has been helping her for her delusions and hallucinations. She tolerates her Zyprexa. MENTAL STATUS EXAM: Patient sat without restlessness. Eye contact was fair at best. Psychomotor activity slowed. She answered questions with brief responses. She spoke in a monotone, soft voice. Her thoughts were clear and coherent. Her affect was flat, mood depressed. She was significantly distressed. She did not show evidence of responding to internal stimuli. She continues to voice paranoid thinking. She voiced no thoughts of harm. She was oriented and alert. ASSESSMENT: I will continue the current diagnosis and treatment plan. I will continue psychotropic medications the same. A primary issue will be focused on her living circumstances. We will continue to work towards coordinating for outpatient services and discharge planning. INDIRA / LUIS: [id number] /
[2021-04-24] MEDS: hydrOXYzine pamoate 25 MG CAP PO SCH ×3 (09:09→20:21)
[2021-04-24] MEDS: OLANZapine 10 MG TAB PO SCH ×2 (09:09→20:21)
[2021-04-24] MEDS: NICOTINE 14MG/24HR PATCH TRANSDERM SCH (09:10)
--- NOTE | 2021-04-24 15:06 | PN ---
PROGRESS NOTE DATE OF SERVICE: 04/24/2021. CHIEF COMPLAINT: The patient was suicidal and overdosed on a large number of Prozac and Vistaril tablets. She was having delusions and hallucinations. INTERVAL HISTORY: Patient has been doing fairly well. She had a quiet day yesterday. She comes out on the unit. She tends to have a reserved manner. She will interact a little with others, though she does not seem to be too inclined towards much socialization. She did attend one group in the evening time. She said she slept well last night. Today she has been up. Overall she continues to do about the same. She has a better outlook today. She has been communicating with her in regard to discharge planning with the anticipation that she would move back to [place] to live with her . When I asked her about the presenting issues for her coming into the hospital and specifically about paranoid delusions, the patient was able to say that she recognized the difference between that thinking that she was having and how she is feeling now. She acknowledged that she needs to work on issues to where she does not get into that kind of thinking. She acknowledges that it ends up damaging her more than anyone else. She was also able to acknowledge that the thoughts she has in that regard pretty much are quite delusional and not reality-based. She says that she is comfortable with the idea of returning to live with her , though there still are issues in terms of what will be the nature of the relationship between the two. The patient does note that her is the most supportive person that she has. Apparently the has made efforts to make contact with our social services director as part of discharge planning. The patient tolerates her psychotropic medications. MENTAL STATUS: Patient sat without restlessness. She gave fairly good eye contact. Psychomotor activity was somewhat slowed. She answered questions with brief responses. Her thoughts were clear. Her affect was flat, her mood subdued. She did not show much emotional response one way or another. She seemed somewhat distressed. She acknowledges that paranoid thinking comes into her thought process and was denying thoughts in that direction currently. She voiced no thoughts of harm. Cognition was clear. ASSESSMENT: I will continue the current diagnosis and treatment plan. The patient will continue Zyprexa 10 mg twice a day. I discussed long-term treatment issues regarding long-term use of antipsychotic medication. It is noted that lab work on 04/22 includes a normal lipid profile and basic metabolic profile. I reviewed long-term concerns related to metabolics and movement disorder issues as it relates to Zyprexa. We are focused on stabilization and discharge planning, and I anticipate the patient being discharged within the next few days. INDIRA / LUIS: [id number] /
[2021-04-25 06:54] VITALS: RESP 16
[2021-04-25] MEDS: NICOTINE 14MG/24HR PATCH TRANSDERM SCH (08:23)
[2021-04-25] MEDS: hydrOXYzine pamoate 25 MG CAP PO SCH ×3 (08:23→20:22)
[2021-04-25] MEDS: OLANZapine 10 MG TAB PO SCH ×2 (08:23→20:20)
--- NOTE | 2021-04-25 16:09 | PN ---
PROGRESS NOTE DATE OF SERVICE: 04/25/2021. CHIEF COMPLAINT: The patient was suicidal and overdosed on a large number of Prozac and Vistaril tablets. She was having delusions and hallucinations. INTERVAL HISTORY: Patient has been doing fair. She had a quiet day yesterday. She comes out on the unit. She tends to have a reserved manner when she is out around others. She has been attending groups and seems to be well engaged in the group process. She reports that she slept well last night. Today she has been up. Overall, things are about the same. Her mood seems to be slowly improving, though she still is on the quiet reserved side. It does seem like she is having some anxiety relating to difficulty she is having reaching out to her support system. She has been making calls to her , though has not gotten return calls. She had talked to her at a few different times, including yesterday, and there were fairly solid plans in place that the would be contacting our social psychologist to finalize transportation and the living situation. The understanding is that the patient would be going to live with her in [place] and thus would need referral to mental health services in that [facility]. As of yet we have not been able to hear back from the nor has the patient as far as any way of finalizing plans. The patient notes that she does see improvement, where she has less inclination towards the paranoid thinking. She did reach out to call the people that she was living with with the possibility that she perhaps could go and live there temporarily while things get sorted out with her . She said the phone call did not go well and she was told to not make any further contacts with them. Thus the option she had for living circumstance in [place] is not available. The patient was somewhat distressed over that situation, understandably so. The patient was able to say that she had created this problem for herself and now understands the consequences. She tolerates her psychotropic medications. MENTAL STATUS: Patient sat without restlessness. Eye contact was fair at best. Psychomotor activity slowed. Speech was monotone. She answered questions with brief responses. She did not say much. She was not spontaneous or interactive. Her affect was flat. Her mood was depressed. She was moderately distressed. There were no indications of her responding to internal stimuli. She tended to downplay problems she might be having with any paranoid thinking. She voiced no thoughts of harm. Cognition was clear. ASSESSMENT: I will continue the current diagnosis and treatment plan. I will continue psychotropic medications the same. At this point we are continuing to work on discharge planning issues and placement. We will focus on stabilization and discharge planning. I reviewed issues at length in regard to the patient's psychotropic medication. I reviewed the indication, potential side effects and longer-term concerns related to metabolics and movement disorder issues. The patient was accepting of continuing on the Zyprexa as her only psychotropic medication. INDIRA / CLARISSAN: [id number] /
[2021-04-26 06:38] VITALS: BP 120/61; PULSE 60; TEMP 97.1
[2021-04-26] MEDS: NICOTINE 14MG/24HR PATCH TRANSDERM SCH (08:18)
[2021-04-26] MEDS: hydrOXYzine pamoate 25 MG CAP PO SCH ×3 (08:18→20:28)
[2021-04-26] MEDS: OLANZapine 10 MG TAB PO SCH ×2 (08:18→20:28)
--- NOTE | 2021-04-26 18:42 | DS ---
DISCHARGE SUMMARY DATE OF SERVICE: 04/26/2021. DATE OF ADMISSION: 04/21/2021. DATE OF DISCHARGE: 04/27/2021 ADMISSION AND DISCHARGE DIAGNOSES: 1. Major depression, chronic and recurrent, severe, with psychotic features. 2. Overdose of a significant amount of Vistaril and Prozac. 3. Complex trauma. HISTORY OF PRESENTING ILLNESS: The patient is a 31-year-old female. She had a recent admission here in October for similar circumstances. She notes that she had an unstable living situation and has lived between homes with her in [place] and then with a significant other in [place] and 2 different occasions including recently with a friend in [place]. She says at all of these situations she seems to start getting into paranoid thinking, believing she is being drugged or poisoned. She had been living with the friend here in [place] and started accusing that person of nefarious happenings. She has been seen through [facility] and was followed up by Dr. Dean, who started her on Prozac 20 mg a day for depression. She noted that the depression seemed to get worse over the last several months and especially so in the last month. She said the depression seemed to lead into her developing paranoid thinking. She got into an argument with the person she was living with and ultimately overdosed on about 30 tablets of 10-mg Prozac, 8 tablets of 20-mg Prozac and 85 tablets of Vistaril by the patient's report. She noted that she was having auditory hallucinations with voices saying mean things to her which were setting off panic attacks. She was getting flashbacks to her grandfather's , which was a traumatic situation for her. She smokes marijuana on a daily basis. She had a urine drug screen positive for tricyclic antidepressants, benzodiazepines and marijuana. Patient stated that she had not done any benzodiazepines or tricyclics. There is the possibility of a false-positive with her Prozac. Patient was admitted for further evaluation. PAST MEDICAL HISTORY AND PHYSICAL EXAMINATION: Noncontributory. Please see medical consultation notes for details. MENTAL STATUS EXAM: Patient was quite restless. She answered questions with brief responses. Her thoughts were clear. She was spontaneous and interactive. She spoke in a monotone voice. Her affect was flat, mood depressed. She was significantly distressed. She was reporting auditory hallucinations and paranoid delusions. She had made a suicide attempt on April 19 by overdose. She was stating that she did not have impulse or plans towards self-harm at the time that she came on the psychiatric unit. On cognitive exam she was oriented and alert. COURSE OF HOSPITALIZATION: The patient was admitted for comprehensive medical, psychiatric and psychosocial evaluation. We engaged the patient in individual and group therapeutic activities. Early on in her admission the patient was fairly withdrawn. She was started on Zyprexa 5 mg three times a day. The indication for Zyprexa was to address psychotic symptoms of hallucinations and delusions as well as to reduce physiologic stress response relating to acute withdrawal from marijuana. She was also given Vistaril 25 mg twice a day, 50 mg at bedtime. Patient had stated that Vistaril had been helpful for her in the past as far as managing anxiety and some withdrawal issues. Early on in her hospital stay, the patient tended to be fairly withdrawn. She started attending groups. A main focus for the patient was trying to make contacts with her with a plan towards relocating back to [place] to live with her. She indicated that her was supportive of the situation. As her hospitalization progressed, the patient was able to say that delusional thinking had lessened to a significant degree. She was able to recognize that prior to coming into the hospital she clearly had delusions and hallucinations that were out of touch with reality. She was able to say that those thoughts had dissipated and that she could see a substantial difference in her thinking process during the later part of her hospitalization versus issues leading to her coming into the hospital. She was able to recognize that she has had recurring bouts of these issues which have led to situations like how she came into the hospital. She was able to engage appropriately in discharge planning and set up plans with her to relocate to [place]. CONDITION AT DISCHARGE: Patient was stable. Her mood was improved. She was voicing significant reduction in hallucinations and delusional thinking. She tolerated her psychotropic medications. She voiced no thoughts of harm. RECOMMENDATIONS AND FOLLOWUP: Patient is discharged to home. Discharge medications: Vistaril 25 mg twice a day, 50 mg at bedtime, and Zyprexa 10 mg twice a day. She will be set up for followup with [facility] in [place]. MMODL / IJN: [id number] / JORY
[2021-04-27] MEDS: hydrOXYzine pamoate 25 MG CAP PO SCH ×3 (08:30→20:05)
[2021-04-27] MEDS: NICOTINE 14MG/24HR PATCH TRANSDERM SCH (08:30)
[2021-04-27] MEDS: OLANZapine 10 MG TAB PO SCH ×2 (08:31→20:05)
--- NOTE | 2021-04-29 07:54 | DS ---
DISCHARGE SUMMARY DATE OF SERVICE: 04/27/2021. ADDENDUM: DATE OF ADMISSION: 04/21/2021. DATE OF DISCHARGE: 04/27/2021 ADMISSION AND DISCHARGE DIAGNOSES: 1. Major depression chronic and recurrent severe with psychotic features. 2. Overdose of a significant amount of Vistaril and Prozac. 3. Complex trauma. FOLLOWUP FROM DISCHARGE SUMMARY: I refer the reader to be discharge summary of 04/26/2021 for details. The patient was scheduled to be discharged on April 26. The plan was that she would be picked up by her and would be going to reside with her in [place]. There were tentative plans set up for her to be followed up at [facility]. The patient's did not show up for the planned discharge. The patient remained on the unit on April 26. She was somewhat distressed by the situation, though seemed to be managing it reasonably well. It is noteworthy that her comments were that she has caused herself problems by her own actions and that she cannot really blame anyone else for her difficulty. She slept fairly well last night. Today she has been up. She made a number of phone calls and has been able to make contact with a friend with the plan to pick her up. She anticipates living with her friend at least temporarily. She will be working on mental health followup. She has been continued on her medications. She initiated appropriate discharge planning. CONDITION AT DISCHARGE: Patient was stable. Her mood was improved. She was denying any symptoms of thought disorder. She denied any thoughts of harm. She tolerated her psychotropic medications. RECOMMENDATIONS AND FOLLOWUP: DISCHARGE MEDICATIONS: Vistaril 25 mg twice a day, 50 mg at bedtime and Zyprexa 10 mg twice a day. She will be coordinating followup with [facility]. MMODL / IJN: [id number] /
== END 2021-04-27 21:15 | disposition home or self-care (01) | DRG 882 ==
LOC: EC 09:08 → 3MHU 13:43
PROVIDERS: ADMIT Psychiatry & Neurology Psychiatry; ATTEND Psychiatry & Neurology Psychiatry
DX: F43.10 Post-traumatic stress disorder, unspecified (principal); F33.3 Major depressive disorder, recurrent, severe with psychotic symptoms; T43.222A Poisoning by selective serotonin reuptake inhibitors, intentional self-harm, initial encounter; F12.23 Cannabis dependence with withdrawal; T43.592A Poisoning by other antipsychotics and neuroleptics, intentional self-harm, initial encounter; Z20.822 Contact with and (suspected) exposure to COVID-19; F41.0 Panic disorder [episodic paroxysmal anxiety]; F17.210 Nicotine dependence, cigarettes, uncomplicated; Z71.6 Tobacco abuse counseling; Z79.899 Other long term (current) drug therapy; Z86.14 Personal history of Methicillin resistant Staphylococcus aureus infection; Z86.19 Personal history of other infectious and parasitic diseases; Z98.891 History of uterine scar from previous surgery; Z90.49 Acquired absence of other specified parts of digestive tract; Z87.19 Personal history of other diseases of the digestive system; Z91.51 Personal history of suicidal behavior; Z87.440 Personal history of urinary (tract) infections; Z98.890 Other specified postprocedural states; Z81.8 Family history of other mental and behavioral disorders
CPT/HCPCS: 36415; 80053; 80061; 80143; 80164; 80179; 80306; 81001; 81025; 82075; 83036; 84443; 85025; 87635; 93005; 99285